=== PATIENT | male | born 2000 | race Caucasian/White ===

== ENCOUNTER 2022-01-20 04:20 | Emergency (ER) | payer BC, SELFPAY ==
[2022-01-20 04:21] VITALS: BP 149/89; PULSE 101; RESP 15; TEMP 36.9; O2SAT 95; BMI 45.7
--- NOTE | 2022-01-20 04:37 | EDS_ITS ---
HPI History of Present Illness Chief Complaint: Allergic Reaction Informant: patient and spouse/S.O. Narrative Narrative: Resents with with hives that started earlier this morning. He states he thinks this is related to chocolate and peanut butter Rudyard[employer] that he ate last night. He initially had some GI upset, sulfur burps, increased flatus. He then started to get itching and hives. No trouble breathing. He took Benadryl at home but vomited about 45 minutes later. He has a history of allergies to foods but never to nuts. He has had allergies to red dye and to eyedrops. He has never had anaphylaxis. He cannot think of anything different that he ate other than the buckeyes. So far nothing is made his symptoms specifically better or worse PFSH PFSH Medical History no medical history Home Medications ondansetron 4 mg disintegrating tablet 4 mg PO Q8H PRN nausea and vomiting #10 tabs 01/20/22 [Rx Last Taken Unknown] prednisone 20 mg tablet 40 mg PO DAILY 5 days #10 tabs 01/20/22 [Rx Last Taken Unknown] Allergy/AdvReac Type Severity Reaction Status Date / Time No Known Allergies Allergy Verified 01/20/22 04:25 Surgical History no surgical history Social History Smoking Status: Never smoker ROS ROS ED Constitutional Constitutional ED: Denies chills or fever(s) Eyes Eyes: Denies change in vision ENT ENT ED: Denies ear pain, rhinorrhea or sore throat Cardiovascular Cardiovascular: Denies chest pain, orthopnea, palpitations or paroxysmal nocturnal dyspnea Respiratory/Chest Respiratory/Chest: Denies cough, dyspnea, dyspnea on exertion, orthopnea or paroxysmal nocturnal dyspnea Gastrointestinal Gastrointestinal: Reports nausea and vomiting Genitourinary Genitourinary ED: Denies hematuria Musculoskeletal Musculoskeletal: Denies arthralgias or myalgias Integumentary Reports rash Neurologic Neurologic: Denies headache(s), paresthesias or weakness Endocrine Endocrinology: Denies polydipsia or polyuria Allergic/Immunologic Allergic/Immunologic ED: Reports urticaria; Denies mouth swelling or tongue swelling EXAM Physical Exam Const Vital Signs: 01/20/22 04:21 Temperature 98.5 F Temperature Source Temporal Pulse Rate 101 H Respiratory Rate 15 Blood Pressure 149/89 H Blood Pressure Mean 109 Pulse Ox 95 Oxygen Delivery Method Room Air Positive well nourished General Appearance ED: NAD; Negative for cyanotic or diaphoretic HEENT Reports moist mucous membranes HEENT Narrative: No swelling no mucous membranes. He handles secretions normally. Voice is normal. Eyes EOMs intact bilaterally Neck supple Neck Narrative: No stridor Resp normal respiratory effort and clear to auscultation bilaterally Auscultation: Negative for wheezes Cardio regular rate and regular rhythm GI normal to inspection, nondistended, normoactive bowel sounds and non-tender Palpation: soft Back/Spine no CVA tenderness Extremity General Extremety ED: Negative for edema or tenderness General Extremity: Negative for edema Neuro no sensory deficits noted Sensorium / Orientation: alert Motor Exam: strength 5/5 throughout Psych mental status grossly normal Skin Skin Narrative: Patient does have some mild diffuse hives. He is scratching. There is no purpu ra or petechiae. No bullae or vesicles. MDM MDM MDM Narrative Medical decision making narrative: Patient was given IV fluids, hydroxyzine, Solu-Medrol and Pepcid. His rash is markedly improved. He has been resting quietly. He was also given some Zofran for the nausea. That is gone. Plan will be to keep him on meds for about 5 days. We discussed reasons to return and avoidance of inciting foods in the future Discharge Plan Triage Chief Complaint: Allergic Reaction ED Provider: Matthieu Chamberlain Dx/Rx/DC Orders Clinical Impression: Urticaria Instructions: ED Hives (Adult) Prescriptions: New prednisone 20 mg tablet 40 mg PO DAILY 5 Days Qty: 10 0RF ondansetron 4 mg tablet,disintegrating 4 mg PO Q8H PRN (Reason: nausea and vomiting) Qty: 10 0RF Primary Care Provider: Care Physician,No Primary Referrals: Claudette Gomez MD [Med Staff - Moving Worker] - 3-5 Days if not improving Activity Restrictions/Additional Instructions: Take 1 1 [id number] Pepcid daily for the next 5 days. Take 1 Claritin [id number] daily for the next 5 days. Disposition Disposition: Home, Self Care
[2022-01-20] MEDS: MethylPREDNISolone 125 MG/2 ML Vial IV (04:47)
[2022-01-20] MEDS: 0.9% Normal Saline 1,000 ML 1000 ML IV (04:47)
[2022-01-20] MEDS: hydrOXYzine 50 MG/ML Vial 25 MG IM (04:48)
[2022-01-20] MEDS: Ondansetron 4 MG/2 ML Vial IV (04:48)
[2022-01-20] MEDS: Famotidine 200 MG/20 ML MDV 20 MG in 0.9% Normal Saline (Pres. free 8 ML 300 MG IV (04:51)
[2022-01-20 05:44] VITALS: BP 142/71; PULSE 67; RESP 18; O2SAT 94
== END 2022-01-20 05:46 | disposition home or self-care (01) ==
PROVIDERS: Emergency Provider Emergency Medicine; Visit Provider Emergency Medicine
DX: L50.9 Urticaria, unspecified (principal)
CPT/HCPCS: 99283; J7030; J2405; J3490

== ENCOUNTER 2023-04-12 05:14 | Emergency (ER) | payer BC, SELFPAY ==
[2023-04-12 05:15] VITALS: BP 109/40; PULSE 125; RESP 20; TEMP 36.9; O2SAT 94; BMI 47.9
--- NOTE | 2023-04-12 05:25 | RAD_ITS ---
INDICATION: cough EXAMINATION/TECHNIQUE: X-RAY - XR Chest 1 View COMPARISON: None. FINDINGS: LINES/DEVICES: None. LUNGS: No pulmonary edema or focal airspace consolidation. No sizable pleural effusion. No pneumothorax detected. MEDIASTINUM AND CARDIOVASCULAR STRUCTURES: Heart size within normal limits. Mediastinal contours unremarkable. BONES AND SOFT TISSUES: No acute findings. RAD/Chest 1 View (Portable) IMPRESSION: No radiographic evidence of acute cardiopulmonary disease. Electronically Signed: Sonny Mariee MD at 8:04 EST ,
--- NOTE | 2023-04-12 05:26 | EX.ED.DYSGE1 ---
HPI History of Present Illness Chief Complaint: Cold Sx Informant: patient Onset/Context/Timing Onset: Days Context: Gradual Onset Narrative Narrative: Patient presents secondary to cold symptoms. He states his got sick 3 days ago. He gradually started feeling ill about the same time, but has been much worse over the past 24 hours. He describes fever but did not measure it at home. He describes cough that is sometimes productive. He does feel short of breath and has had nausea and vomiting. He has not had diarrhea. He states that he has not had normal urination and cannot keep fluids down. PFSH PFSH Medical History no medical history no medical history Home Medications ondansetron 4 mg disintegrating tablet 4 mg PO Q8H PRN nausea and vomiting #10 tabs 01/20/22 [Rx Last Taken Unknown] prednisone 20 mg tablet 40 mg (2 x 20 mg) PO DAILY 5 days #10 tabs 01/20/22 [Rx Last Taken Unknown] ondansetron 4 mg disintegrating tablet 4 mg PO Q8H PRN PRN Nausea #10 tabs 04/12/23 [Rx Last Taken Unknown] oseltamivir 75 mg capsule (Tamiflu) 75 mg PO Q12H 5 days #10 caps 04/12/23 [Rx Last Taken Unknown] Allergy/AdvReac Type Severity Reaction Status Date / Time No Known Allergies Allergy Verified 01/20/22 04:25 Social History Smoking Status: Never smoker ROS ROS ED Constitutional Constitutional ED: Reports fever(s) and subjective Eyes Eyes: Denies change in vision or discharge from eye(s) ENT ENT ED: Denies discharge from eye(s), rhinorrhea or sore throat Cardiovascular Cardiovascular: Denies chest pain or palpitations Respiratory/Chest Respiratory/Chest: Reports cough, dyspnea and sputum Gastrointestinal Gastrointestinal: Reports nausea and vomiting; Denies abdominal pain or diarrhea Genitourinary Genitourinary ED: Denies difficulty urinating or dysuria Musculoskeletal Musculoskeletal: Reports back pain and myalgias Integumentary Denies Abrasions or rash Neurologic Neurologic: Denies headache(s) or weakness Endocrine Endocrinology: Denies polydipsia or polyuria Allergic/Immunologic Allergic/Immunologic ED: Denies lip swelling or urticaria EXAM Physical Exam Const Vital Signs: 04/12/23 05:15 04/12/23 05:53 Temperature 98.5 F Temperature Source Temporal Pulse Rate 125 H Respiratory Rate 20 H Respiratory Pattern Normal Blood Pressure 109/40 L Blood Pressure Mean 63 Pulse Ox 94 Oxygen Delivery Method Room Air Positive well nourished and well developed General Appearance ED: well developed HEENT Reports dry mucous membranes Mouth ED: Yes dry mucous membranes Mouth: dry mucous membranes Eyes EOMs intact bilaterally Chest Wall inspection of chest normal and palpation of chest normal Resp normal respiratory effort and clear to auscultation bilaterally Cardio Rate: tachycardic GI non-tender Auscultation: hypoactive bowel sounds Palpation: soft Extremity normal to inspection Neuro oriented x3 and no sensory deficits noted Motor Exam: strength 5/5 throughout Psych mental status grossly normal Skin no rashes or lesions noted MDM MDM MDM Narrative Medical decision making narrative: IV line initiated. Patient given IV fluids, Zofran, and Toradol. Labwork obtained to evaluate for leukocytosis, anemia, and electrolyte derangement. Swab for COVID, influenza, and RSV obtained. Lab Data Attestation: I reviewed the patient's lab results. Labs: Laboratory Results - last 24 hr 04/12/23 05:40 WBC 8.6 RBC 4.87 Hgb 14.0 Hct 42.3 MCV 86.9 MCH 28.7 MCHC 33.1 RDW Std Deviation 39.5 RDW Coeff of Pavan 12.4 Plt Count 134 L MPV 10.9 Immature Gran % (Auto) 0.300 Neut % (Auto) 86.7 H Lymph % (Auto) 4.1 L Merrick % (Auto) 8.6 Eos % (Auto) 0.0 Baso % (Auto) 0.3 Absolute Neuts (auto) 7.5 Absolute Lymphs (auto) 0.35 L Nucleated RBC % 0 Sodium 139 Potassium 3.8 Chloride 108 H Carbon Dioxide 25.0 Anion Gap 6 BUN 11 Creatinine 0.86 Estim Creat Clear Calc 193.90 Est GFR (MDRD) Af Amer 139 Est GFR (MDRD) Non-Af 115 BUN/Creatinine Ratio 12.8 Glucose 129 H Calcium 8.8 Treatment and Re-Evaluation :: CBC was normal white count 8.6 with a hemoglobin of 14.0. 86% neutrophils are noted. Chemistry studies are unremarkable with normal renal function. Glucose is 129. Portable chest x-ray per my interpretation reveals no evidence of infiltrate. Swab for COVID and RSV is negative. Patient's flu swab does return positive for influenza A. On repeat evaluation patient does report his nausea is improved. He is given ice chips. He now tells me he does not believe his symptoms started until 24 hours ago. He is interested in trying Tamiflu and I will write this prescription for him. I will also send a prescription for Zofran to the pharmacy. We discussed alternating Tylenol and ibuprofen to help with body aches and sweats. Discharge Plan Triage Chief Complaint: Cold Sx ED Provider: Vianey Shore Dx/Rx/DC Orders Clinical Impression: Influenza A Instructions: ED Influenza (Adult) Prescriptions: New ondansetron 4 mg tablet,disintegrating 4 mg PO Q8H PRN PRN (Reason: Nausea) Qty: 10 0RF oseltamivir [Tamiflu] 75 mg capsule 75 mg PO Q12H 5 Days Qty: 10 0RF No Action prednisone 20 mg tablet 40 mg PO DAILY 5 Days Qty: 10 0RF ondansetron 4 mg tablet,disintegrating 4 mg PO Q8H PRN (Reason: nausea and vomiting) Qty: 10 0RF Primary Care Provider: Care Physician,No Primary Referrals: Audra Serra MD [Med Staff - Stained Glass Painter] - As Needed Care Physician,No Primary [Primary Care Provider] - Disposition Disposition: Home, Self Care
[2023-04-12] MEDS: Ketorolac 30 MG/ML Syringe IV (05:46)
[2023-04-12] MEDS: Ondansetron 4 MG/2 ML Vial IV (05:46)
[2023-04-12] MEDS: 0.9% Normal Saline (1000mL) 1,000 ML 1000 ML IV (05:46)
[2023-04-12 05:59] LABS: Absolute Lymphocyte Count 0.35 X10^3/uL (0.83-4.51); Absolute Neutrophil Count 7.5 X10^3/uL (2.0-7.7); Basophil# 0.03 X10^3/uL; Basophil% 0.3 % (0-1); Hematocrit 42.3 % (40-54); Lymphocyte # 0.35 X10^3/ul (0.83-4.51); Lymphocyte % 4.1 % (19-41); Mean Corp Hgb Conc 33.1 g/dL (32-36); Mean Corpuscular Hgb 28.7 pg (27.0-32.0); Mean Corpuscular Volume 86.9 fL (80-94); Mean Platelet Vol. 10.9 fl (6.2-12.0); Monocyte# 0.74 X10^3/uL; Monocyte% 8.6 % (0-10); NRBC Flagged by Analyzer 0 % (0-5); Neutrophil # 7.47 X10^3/uL (2.7-7.7); Neutrophil % 86.7 % (47-70); POSITIVE DIFFERENTIAL YES; Platelet Count 134 K/mm3 (150-450); RBC Distribution Width CV 12.4 % (11.6-14.6); RBC Distribution Width SD 39.5 fl (35.1-43.9); Red Blood Count 4.87 M/mm3 (4.6-6.2); White Blood Count 8.6 K/mm3 (4.4-11.0)
--- OUTSIDE RECORDS SUMMARY | 2023-04-12 06:01 | XMS RPT_ITS | CCD ---
Author Name Unknown Address [address] [place] [address] Organization [facility] Care Team Providers Care Ell Teacher Name Role Phone Haim Parekh Unavailable Unavailable Haim Parekh Unavailable Unavailable [facility]available [facility] Unavailable Unavailable Rings, Luis Unavailable Unavailable Rings, Luis Unavailable Unavailable Sokari, Telemate Unavailable Unavailable Sokari, Telemate Unavailable Unavailable [facility] Unavailable Unavailable No Doctor Assigned, Nodr Unavailable Unavail able Marquard, Chuy V Unavailable Unavailable Marquard, Chuy V Unavailable Unavailable No Doctor Assigned, Nodr Unavailable Unavail able Ivanauskas, Saulius Unavailable Unavailable Ivanauskas, Saulius Unavailable Unavailable Allergies Allergy Classification Reported Allergen(s) Allergy Type Date of Onset Reaction(s) Facility (1 source) Bee/Wasp/Ant venom; Translations: [Bee Stings] Propensity to adverse reactions to drug (disorder) [facility] Repository (1 source) coconut extract; Translations: [coconut] Drug Allergy [facility] Repository (1 source) corn extract; Translations: [[place]] Drug Allergy [facility] Repository (1 source) Environmental allergy; Translations: [environmental] Propensity to adverse reactions to drug (disorder) [facility] Repository (1 source) peanut; Translations: [Peanuts] Propensity to adverse reactions to drug (disorder) [facility] Repository (1 source) tree nut, unspecified; Translations: [Tree Nuts] Propensity to adverse reactions to drug (disorder) [facility] Repository (1 source) popcorn; Translations: [popcorn] Propensity to adverse reactions to drug (disorder) [facility] Repository (1 source) No Known Medication Allergies; Translations: [No Known Medication Allergies] Propensity to adverse reactions to drug (disorder) [facility] Repository Results Test Name Value Interpretation Reference Range Facil ity Encounters Encounter Date Encounter Type Care Provider Facility Start: 08-21-2017 Patient encounter Facil [id number] Start: 08-18-2017 End: 08-18-2017 Emergency department patient visit [facility] Facility:[facility] Start: 08-18-2017 Patient encounter Facil [id number] Start: 07-20-2017 End: 07-21-2017 Ambulatory Haim Parekh Facility:[facility] Start: 07-16-2017 End: 07-17-2017 Emergency department patient visit Zack Noguera Facility:[facility] Start: 03-03-2017 End: 03-03-2017 Emergency department patient visit Nodr No Doctor Assigned Facility:[facility] Start: 02-03-2017 End: 02-03-2017 Emergency department patient visit Nodr No Doctor Assigned Facility:[facility] Payers Date Payer Category Payer Unknown Unknown [id number] Summary Purpose Family History No Family History Records FoundNo Family History Records Found Advance Directives No Advanced Directives Records FoundNo Advanced Directives Records Found Additional Source Comments (unrecognized sect ion and content) No Status Records FoundNo Status Records Found INFORMATION SOURCE (unrecogn ized section and content) DATE CREATED AUTHOR AUTHOR'S SERGIO CROWLEY 10/22/2017 [facility] FOR RECORDS PERTAINING TO PATIENTS WHO ARE OR HAVE BEEN ENROLLED IN A CHEMICAL DEPENDENCY/SUBSTANCEABUSE PROGRAM, SOME INFORMATION MAY BE OMITTED. This clinical summary was aggregated from multiple sources. Caution should be exercised in using it in the provision of clinical care. This summary normalizes information from multiple sources, and as a consequence, information in this document may materially change the coding, format and clinical context of patient data. In addition, data may be omitted in some cases. CLINICAL DECISIONS SHOULD BE BASED ON THE PRIMARY CLINICAL RECORDS. [facility] [email or web address] provides no warranty or guarantee of the accuracy or completeness of information in this document.
[2023-04-12 06:12] LABS: Anion Gap 6 (5-15); BUN 11 mg/dL (7-18); BUN/Creat Ratio 12.8 RATIO (10-20); Calcium,Total 8.8 mg/dL (8.5-10.1); Chloride 108 mmol/L (98-107); Creatinine, Serum 0.86 mg/dL (0.70-1.30); EST Glomerular Filtration Rate 115 mL/min (>60); Est Glom Filt Rate - Afr Amer 139 mL/min (>60); Glucose 129 mg/dL (74-106); Potassium 3.8 mmol/L (3.5-5.1); Sodium Level 139 mmol/L (136-145)
== END 2023-04-12 07:04 | disposition home or self-care (01) ==
PROVIDERS: Emergency Provider Emergency Medicine; Visit Provider Emergency Medicine
DX: J10.1 Influenza due to other identified influenza virus with other respiratory manifestations (principal); R11.2 Nausea with vomiting, unspecified; R06.02 Shortness of breath
CPT/HCPCS: 71045; 80048; 85025; 87631; 96361; 96374; 96375; 99283; J7030; J2405

== ENCOUNTER 2023-04-16 13:05 | Emergency (ER) | payer BC, SELFPAY ==
[2023-04-16 13:06] VITALS: BP 124/74; PULSE 89; RESP 18; TEMP 35.9; O2SAT 95; BMI 47.7
[2023-04-16 13:31] VITALS: TEMP 37
--- NOTE | 2023-04-16 13:32 | EX.ED.DYSGE1 ---
HPI History of Present Illness Chief Complaint: Cold Sx Detail of Chief Complaint: Upper respiratory symptoms due to influenza A with wheezing and hemoptysis Informant: patient Onset/Context/Timing Onset: Days Context: Sudden Onset Timing: Continuous and Waxes and wanes Quality: Sent to ER for hemoptysis and wheezing Location: Respiratory Current Severity: Mild Maximum Severity: Moderate Worsened by: Activity Relieved by: nothing Associated Symptoms Associated Symptoms: Per HPI narrative Narrative Narrative: Patient presents with cough productive of clear sputum that now has streaks of blood or small globs of blood noted. He was seen on Thursday diagnosed with influenza A. He had a visit in December for viral-like illness. Patient denies fever, chills night sweats. He denies myalgias or arthralgias. He does endorse rhinorrhea, congestion postnasal drainage. Denies sore throat. Cough is productive of predominantly clear sputum. He began to have blood streaks starting last evening. He has no history of VTE. Denies leg pain, swelling discoloration. He has no risk factors for VTE. He denies GI symptoms. He denies rash. Prior similar symptoms: Yes Recent Ill[facility] Medical History (Updated 04/16/23 @ 15:[address] Kimani Brennan MD) Influenza A Home Medications ondansetron 4 mg disintegrating tablet 4 mg PO Q8H PRN nausea and vomiting #10 tabs 01/20/22 [Rx Last Taken Unknown] prednisone 20 mg tablet 40 mg (2 x 20 mg) PO DAILY 5 days #10 tabs 01/20/22 [Rx Last Taken Unknown] ondansetron 4 mg disintegrating tablet 4 mg PO Q8H PRN PRN Nausea #10 tabs 04/12/23 [Rx Last Taken Unknown] oseltamivir 75 mg capsule (Tamiflu) 75 mg PO Q12H 5 days #10 caps 04/12/23 [Rx Last Taken Unknown] prednisone 20 mg tablet 60 mg (3 x 20 mg) PO DAILY #12 TABLETS 04/16/23 [Rx Last Taken Unknown] Allergy/AdvReac Type Severity Reaction Status Date / Time No Known Allergies Allergy Verified 04/16/23 13:06 Surgical History no surgical history no surgical history Social History (Updated 04/16/23 @ 13:[address] Kimani Brennan MD) household members: spouse Smoking Status: Never smoker ROS ROS ED Constitutional Constitutional ED: Reports chills, fever(s) and subjective Eyes Eyes: Denies blurry vision, change in vision or diplopia ENT ENT ED: Reports rhinorrhea and sore throat; Denies ear pain Cardiovascular Cardiovascular: Denies chest pain, orthopnea, palpitations, paroxysmal nocturnal dyspnea or racing heartbeat Respiratory/Chest Respiratory/Chest: Reports cough and dyspnea; Denies dyspnea on exertion, orthopnea, paroxysmal nocturnal dyspnea or sputum Gastrointestinal Gastrointestinal: Denies abdominal pain, diarrhea, nausea or vomiting Genitourinary Genitourinary ED: Denies dysuria, hematuria or urinary frequency Musculoskeletal Musculoskeletal: Denies arthralgias, back pain, myalgias or neck pain Integumentary Denies rash Neurologic Neurologic: Reports weakness Psychiatric Psychiatric: Denies anxiety, depression or suicidal ideation Endocrine Endocrinology: Denies cold intolerance or heat intolerance Hematologic/Lymphatic Hematologic/Lymphatic: Reports systems reviewed and no addt'l complaints, except as documented EXAM Physical Exam Const Vital Signs: 04/16/23 13:06 04/16/23 13:31 04/16/23 13:31 Temperature 96.6 F L 98.6 F Temperature Source Temporal Oral Pulse Rate 89 Respiratory Rate 18 Respiratory Effort Normal Respiratory Pattern Normal Blood Pressure 124/74 H Blood Pressure Mean 90 Pulse Ox 95 04/16/23 13:43 Temperature Temperature Source Pulse Rate 95 Respiratory Rate 17 Respiratory Effort Respiratory Pattern Normal Blood Pressure Blood Pressure Mean Pulse Ox Positive well nourished and well developed Constitutional Narrative: Patient's voice is slightly hoarse. General Appearance ED: well developed, NAD and pallor HEENT Reports moist mucous membranes HEENT Narrative: Atraumatic and normocephalic. Ears normal. Posterior pharynx is normal. Nares slight congestion bilaterally Eyes PERRL and EOMs intact bilaterally General Eye ED: Negative for pale conjunctiva or scleral icterus Neck no lymphadenopathy, supple and no JVD Chest Wall inspection of chest normal Resp normal respiratory effort and No clear to auscultation bilaterally Resp Narrative: Expiratory phase is slightly increased. Auscultation: wheezes expiratory wheezes, scattered wheezes and throughout Cardio regular rate, regular rhythm, S1 normal heart sound, S2 normal heart sound and no murmurs GI normal to inspection, nondistended, normoactive bowel sounds, non-tender, non-distended and no masses; Negative for hepatosplenomegaly Extremity normal to inspection Extremity Narrative: There is no clubbing or cyanosis noted. Neuro oriented x3, CN's II-XII intact bilaterally and no sensory deficits noted Sensorium / Orientation: alert Psych mental status grossly normal Skin no rashes or lesions noted and no wounds General Skin Exam: elasticity normal and pallor; Negative for jaundice MDM MDM MDM Narrative Medical decision making narrative: Patient with hemoptysis most likely due to the influenza. Since he is wheezing we will treat with prednisone and albuterol. He does know how to use inhaler. He presently does not have an inhaler. Chest x-ray was obtained to assess for pneumonia. Patient is PERC negative. Records from Thursday reviewed. He was seen by Dr. Sanchez. He was diagnosed with influenza type a History & Record Review Additional record(s) reviewed:: Prior ED visit and Prior labs Radiography Chest X-Ray - ED: 2 View, Read by ED Physician (Currently reviewed and interpreted by pr at 1435 is normal. Cardiac silhouette size normal. Lung parenchyma normal. Perihilar region normal. Osseous structures are unremarkable.), Normal, Heart, Lungs, Mediastinum, Bony Structures and No Acute Disease Diagnostic Testing: Clinical Impression(s) from Imaging Studies Chest X-Ray 04/16/23 14:05 IMPRESSION: Normal x-ray examination of the chest. Electronically Signed: Peter Beauchamp MD at 14:42 EST Reading Location ID and State: [facility] / [place] , Service support , Treatment and Re-Evaluation :: Patient was reassessed at 1513. His wheezing has improved. He is still wheezing. He is moving more air. Plan is burst of prednisone and will have respiratory therapist instructed use of inhaler since he is never used one before. Discharge Plan Triage Chief Complaint: Cold Sx ED Provider: Kimani Brennan Dx/Rx/DC Orders Clinical Impression: Cough with hemoptysis, Acute bronchospasm due to viral infection, Type A influenza Prescriptions: New prednisone 20 mg tablet 60 mg PO DAILY Qty: 12 0RF No Action prednisone 20 mg tablet 40 mg PO DAILY 5 Days Qty: 10 0RF ondansetron 4 mg tablet,disintegrating 4 mg PO Q8H PRN (Reason: nausea and vomiting) Qty: 10 0RF ondansetron 4 mg tablet,disintegrating 4 mg PO Q8H PRN PRN (Reason: Nausea) Qty: 10 0RF oseltamivir [Tamiflu] 75 mg capsule 75 mg PO Q12H 5 Days Qty: 10 0RF Primary Care Provider: Care Physician,No Primary Referrals: Care Physician,No Primary [Primary Care Provider] - Activity Restrictions/Additional Instructions: 2 puffs of inhaler every 2-4 hours while awake for the next 3 to 5 days then every 4-6 hours as needed for wheezing. Disposition Disposition: Home, Self Care
[2023-04-16] MEDS: Albuterol 2.5 MG/3 ML VIAL.NEB. INHALATION ×3 (13:42→13:47)
[2023-04-16 13:43] VITALS: PULSE 95; RESP 17
[2023-04-16] MEDS: predniSONE 20 MG Tablet 60 MG PO (14:05)
--- NOTE | 2023-04-16 14:05 | RAD_ITS ---
STUDY: X-RAY CHEST REASON FOR EXAM: Male, 23 years old. Hemoptysis, diagnosed with influenza TECHNIQUE: PA and lateral views of the chest. COMPARISON: Comparison is made with prior study of April 12, 2023. FINDINGS: The lungs are clear and expanded. There is no demonstrated pleural abnormality. Normal size heart. Normal mediastinum and cornel. Normal visualized pulmonary arteries. Normal visualized aortic arch and descending thoracic aorta. Normal visualized thoracic spine. Normal visualized ribs, clavicles, and shoulders. There is no demonstrated abnormality of the visualized soft tissue structures of the upper abdomen. RAD/Chest PA and Lateral IMPRESSION: Normal x-ray examination of the chest. Electronically Signed: Peter Beauchamp MD at 14:42 EST ,
[2023-04-16 15:34] VITALS: BP 136/78; PULSE 64; RESP 16; TEMP 36.4; O2SAT 99
--- OUTSIDE RECORDS SUMMARY | 2023-04-16 19:25 | XMS RPT_ITS | CCD ---
Author Name Unknown Address [address] [place] [address] Organization [facility] Care Team Providers Care Reproductive Healthcare Assistant Name Role Phone Haim Parekh Unavailable Unavailable [...] Propensity to adverse reactions to drug (disorder) [facility] Repository (1 source) coconut extract; Translations: [coconut] Drug Allergy [facility] Repository (1 source) corn extract; Translations: [Jeddo] Drug Allergy [facility] Repository (1 source) Environmental allergy; Translations: [environmental] Propensity to adverse reactions to drug (disorder) [facility] Repository (1 source) peanut; Translations: [Peanuts] Propensity to adverse reactions to drug (disorder) [facility] Repository (1 source) tree nut, unspecified; Translations: [Tree Nuts] Propensity to adverse reactions to drug (disorder) [facility] Repository (1 source) popcorn; Translations: [popcorn] Propensity to adverse reactions to drug (disorder) [facility] Repository (1 source) No Known Medication Allergies; Translations: [No Known Medication Allergies] Propensity to adverse reactions to drug (disorder) [facility] Repository Results Test Name Value Interpretation Reference Range Facil ity Encounters Encounter Date Encounter Type Care Provider Facility Start: 08-21-2017 Patient encounter Facil [id number] Start: 08-18-2017 End: 08-18-2017 Emergency department patient visit [facility] Facility:[facility] Start: 08-18-2017 Patient encounter Facil [id number] Start: 07-20-2017 End: 07-21-2017 Ambulatory Haim Parekh Facility:[facility] Start: 07-16-2017 End: 07-17-2017 Emergency department patient visit Zack Noguera Facility:[facility] Start: 03-03-2017 End: 03-03-2017 Emergency department patient visit Nodr No Doctor Assigned Facility:[facility] Start: 02-03-2017 End: 02-03-2017 Emergency department patient visit Nodr No Doctor Assigned Facility:[facility] Payers Date Payer Category Payer Unknown Unknown [id number] Summary Purpose Family History No Family History Records FoundNo Family History Records Found Advance Directives No Advanced Directives Records FoundNo Advanced Directives Records Found Additional Source Comments (unrecognized sect ion and content) No Status Records FoundNo Status Records Found INFORMATION SOURCE (unrecogn ized section and content) DATE CREATED AUTHOR AUTHOR'S SERGIO CROWLEY 10/22/2017 [facility] FOR RECORDS PERTAINING TO PATIENTS WHO ARE [...] BE BASED ON THE PRIMARY CLINICAL RECORDS. [facility] [employer] provides no warranty or guarantee of the accuracy or completeness of information in this document.
== END 2023-04-16 15:34 | disposition home or self-care (01) ==
PROVIDERS: Emergency Provider Emergency Medicine; Visit Provider Emergency Medicine
DX: J10.1 Influenza due to other identified influenza virus with other respiratory manifestations (principal); R04.2 Hemoptysis; R09.81 Nasal congestion; J98.01 Acute bronchospasm; B34.9 Viral infection, unspecified; R05.9 Cough, unspecified
CPT/HCPCS: 71046; 94640; 99282